=== PATIENT | female | born 1985 | race African-American/Black ===

== ENCOUNTER 2017-06-10 12:40 | Observation (INO) | payer OTHER ==
[~2017-06-10] VITALS: Ht 162.6 cm; Wt 113.9 kg
--- NOTE | 2017-06-10 13:50 | ED GI/GU/ABDOMINAL COMPLAINT ---
History of Present Illness General Chief Complaint: Abdominal Pain/Flank Pain Stated Complaint: PT STATES "IM HAVING A GALLBLADDER ATTACK" Source: patient Exam Limitations: no limitations Vital Signs & Intake/Output Vital Signs & Intake/Output Vital Signs Date Time Temp Pulse Resp B/P B/P Pulse O2 O2 Flow FiO2 Mean Ox Delivery Rate 06/11 0804 98.3 71 18 132/82 100 Room Air Allergies Coded Allergies: No Known Allergies (06/10/17) Triage Note: PT TO ED C/O "GALLBLADDER ATTACK". H/O GALLSTONES X 4 YEARS. STARTED WITH UPPER ABD PAIN, N/V/D THIS AM. Triage Nurses Notes Reviewed? yes ? N Is pt currently ? 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 RUQ abdominal pain. RUQ abdominal pain starting this morning after eating breakfast, constant with fluctuating intensity, sharp quality, worse with movement or palpation, consistent with prior pain from biliary colic. Associated nausea with 3-4 episodes of nonbloody nonbilious emesis prior to arrival, unable to tolerate PO. Some chills without fevers. Denies chest pain, shortness of breath, palpitations, diarrhea, consultation, urinary symptoms, headache, neck pain, or focal neurologic symptoms. Patient has been receiving evaluated by surgery for cholecystectomy, was unable to obtain due to poor timing for surgery. (Ann MARTIN,Jerry) Reconcile Medications Multivitamin (One-A-Day Essential) 1 EACH TABLET 1 TAB PO DAILY SUPPLIMENT ( Reported) Ondansetron (Zofran Odt) 4 MG TAB.RAPDIS 1 TAB SL TID PRN NAUSEA Oxycodone HCl/Acetaminophen (Percocet 5-325 MG Tablet) 5 MG-325 MG TABLET 1 TAB PO Q4-6 PRN postop pain (James Vilchis MD) Past History Travel History Traveled to [place] past 21 day No Medical History Any Pertinent Medical History? see below for history Neurological: psuedo tumor cerebri Gastrointestinal: gallstones Surgical History Surgical History: none Psychosocial History What is your primary language Sami Tobacco Use: Never used ETOH Use: denies use Illicit Drug Use: denies illicit drug use Family History Hx Contributory? Yes (Jerry Juarez MD) Review of Systems Review of Systems Constitutional: Reports: see HPI. EENTM: Reports: no symptoms. Respiratory: Reports: no symptoms. Cardiovascular: Reports: no symptoms. GI: Reports: see HPI. Genitourinary: Reports: no symptoms. Musculoskeletal: Reports: no symptoms. Skin: Reports: no symptoms. Neurological/Psychological: Reports: no symptoms. Hematologic/Endocrine: Reports: no symptoms. Immunologic/Allergic: Reports: no symptoms. All Other Systems: Reviewed and Negative (Jerry Juarez MD) Physical Exam Physical Exam General Appearance: well developed/nourished, no apparent distress, alert, awake Head: atraumatic Eyes: Bilateral: PERRL, EOMI. Ears, Nose, Throat, Mouth: moist mucous membrane Neck: normal inspection, full range of motion Respiratory: normal breath sounds, no respiratory distress, lungs clear Cardiovascular: regular rate/rhythm, normal peripheral pulses Gastrointestinal: normal bowel sounds, soft, tenderness Comments: General: Moderate distress, grimacing, appears uncomfortable Abdomen: Moderate right upper quadrant tenderness to palpation with positive Saxena sign Core Measures ACS in differential dx? No Sepsis Present: No Sepsis Focused Exam Completed? No (Ann MARTIN,Jerry) Progress Differential Diagnosis: AAA, AMI, appendicitis, biliary colic, bowel obstruction , colon cancer, cholecystitis, diverticulitis, ectopic , endometritis, esophageal varices, gastritis, hepatitis, hernia, hemorrhoids, ischemic bowel, inflamm bowel dis, intrauterine , kidney stone, Sandra-Phyllis tear, ovarian cyst, ovarian torsion, pancreatitis, PID/cervicitis, peptic ulcer, PUD/ GERD, perforated viscous, SBO, threatened AB, UTI/pyelo Plan of Care: Orders Procedure Date/time Status PATHOLOGY SPECIMEN 06/11 1528 Active Current Medications Sig/Chapin Start time Last Medication Dose Stop Time Status Admin Heparin Sodium 5,000 UNIT Q8 06/10 2200 AC (Porcine) Lorazepam 2 MG AT BEDTIME PRN 06/10 2030 AC (Ativan) Acetaminophen 1,000 MG Q6H PRN 06/10 1944 AC 06/11 (Ofirmev) 0802 N/A 1 UNIT (No Carrier) Hydromorphone HCl 0.6 MG Q4-6 PRN PRN 06/10 1944 AC 06/11 (Dilaudid) 0847 Hydromorphone HCl 1 MG Q4P PRN 06/10 1944 AC 06/11 (Dilaudid) 0221 Promethazine HCl 12.5 MG Q4 HRS NEEDED PRN 06/10 1944 AC (Phenergen) 06/17 1943 Pantoprazole Sodium 40 MG DAILY 06/10 1933 AC 06/11 (Protonix) 0954 Dextrose/Sodium 1,000 ML .Q6H40M 06/10 1929 AC 06/11 Chloride 0848 (D5W-1/2 Normal Saline 1000ML) Ondansetron HCl 4 MG Q8P PRN 06/10 1929 AC (Zofran) Physician MDM: 31 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 VSS, abdominal exam as above. DDx: Cholelithiasis with biliary colic, cholecystitis, pancreatitis, colitis, early appendicitits. Given zofran, 1L NS with minimal improvement in nausea, dry heaving, some improvement in pain with dailaudid. Bedside ultrasound with multiple large stones in gall bladder, some in lower GB without SIN sign. CBC with high normal WBC at 10.7, otherwise unremarkable. CMP with normal LFTs and lipase. On re-examinatin patient persistently nauseous, dry heaving, appears uncomfortable, repeat zofran dose ordered. Formal U/S with cholelithiasis without cholecystitis. On re-examination patient persistently nauseous, given reglan without relief, unable to tolerate PO. Surgery consulted for symptomatic cholelithiasis, will admit for non- emergency cholecystectomy. Initial ED EKG: none (Ann MARTIN,Jerry) Departure Departure Disposition: STILL A PATIENT Condition: Stable Clinical Impression Primary Impression: Cholelithiasis Secondary Impressions: Refractory nausea and vomiting Referrals: Lucia Lainez DO (PCP/Family) Departure Forms: Customer Survey General Discharge Information Admission Note Spoke With: Edd MARTIN,Dav Smith Documentation of Exam: Documentation of any treatments & extenuating circumstances including Concerns Regarding Discharge (functional status, medication knowledge or non-compliance, living conditions, etc.) that warrant an admission rather than observation: [ Patient presents with right upper quadrant pain and significant nausea and vomiting, found to have cholelithiasis without evidence of norma cholecystitis, vision has several gallstones that are lodged in the lower gallbladder, has a high likelihood of progression of cholecystitis, patient was able to tolerate by mouth in the ED secondary to cholelithiasis despite multiple doses of antiemetics and IV fluids, patient requires admission to the hospital for surgical consultation and laparoscopic cholecystectomy for symptomatic control, if discharged patient has a high likelihood of progression to cholecystitis, inability to tolerate by mouth could be compensated by progressive dehydration, metabolic derangements, with associated morbidity and possibly ] (Ann MARTIN,Jerry) Departure Prescriptions: Current Visit Scripts Oxycodone HCl/Acetaminophen (Percocet 5-325 MG Tablet) 1 TAB PO Q4-6 PRN postop pain #18 TAB (Deng MARTIN,James)
[2017-06-10 14:07] LABS: ABSOLUTE BASOPHIL COUNT 0 /CUMM (0.0-0.2); ABSOLUTE EOSINOPHIL COUNT 0 /CUMM (0.0-0.7); ABSOLUTE GRANULOCYTE CT 9.1 /CUMM (1.4-6.5); ABSOLUTE LYMPH COUNT 1.2 /CUMM (1.2-3.4); ABSOLUTE MONOCYTE COUNT 0.3 /CUMM (0.10-0.60); BASOPHIL % 0.3 % (0.0-2.0); EOSINOPHIL % 0.3 % (0-5); HEMATOCRIT 44.8 % (37-47); MEAN CORPUSCULAR VOLUME 81.4 FL (81.0-99.0); MEAN PLATELET VOLUME 9.8 FL (7.4-10.4); PLATELET COUNT 204 /CUMM (130-400); RBC DISTRIBUTION WIDTH 14.5 % (11.5-14.5); RED BLOOD CELL CT 5.51 /CUMM (4.20-5.40); WHITE BLOOD CELL COUNT 10.7 /CUMM (4.8-10.8)
[2017-06-10] MEDS ORDERED: ONE-A-DAY ESSE1 EACH PO (14:22)
--- NOTE | 2017-06-10 16:26 | ULTRASOUND REPORT ---
EXAMINATION: US ABDOMEN LIMITED CLINICAL INFORMATION: Right upper quadrant pain, nausea and vomiting; question cholecystitis. COMPARISON: None. TECHNIQUE: Real-time imaging of the right upper quadrant abdominal viscera. FINDINGS: PANCREAS: Normal. LIVER: There is a longitudinal span of 20.3 cm. The liver demonstrates normal size, contour and increased echogenicity. No focal lesion or intrahepatic biliary duct dilatation. GALLBLADDER: There are shadowing gallstones, without sludge, polyps, wall thickening or pericholecystic fluid. COMMON BILE DUCT: Normal in caliber measuring 0.5 cm in diameter. RIGHT KIDNEY: Normal. No hydronephrosis. No renal calculi or focal parenchymal lesions. The kidney measures 10.1 cm in maximum dimension. FREE FLUID: None. IMPRESSION: 1. There is mild hepatomegaly. 2. There is generalized increase in hepatic echotexture, consistent with fatty infiltration or hepatocellular disease. Please correlate clinically. No focal hepatic mass or intrahepatic biliary dilatation is seen. 3. There is cholelithiasis, without cholecystitis or choledocholithiasis.
--- NOTE | 2017-06-10 20:19 | History & Physical Pre-Op ---
Darek Gonsales 06/10/17 1938: General Information and HPI History of Present Illness: This is a morbidly obese 31 year-old female with a history of pseudo tumor cerebri and cholelithiasis who presents with a sudden onset of abdominal pain. Patient states she developed right upper quadrant abdominal when she woke up this morning around 8 o'clock. She states the pain is constant and fluctuates in intensity. She describes the pain as sharp in nature, worse with movement or palpation. She reports assoicated nausea, vomiting and decreased appetite. She states she last time she ate was soup and popeyes last night. She reports having similar episodes over the past couple years and was referred to a surgeon, however was unable to have surgery due lifting restrictions and having to care for her 11 month old at the time. She states she last episode she had was two years ago. In the ER, she had an ultrasound which revealed cholelithiasis, without cholecystitis or choledocholithiasis. She continues to complain of pain and nausea and had multiple episodes of bilious vomiting in the ER and was unable to tolerate a po trial. She denies any fever, chills, chest pain, shortness of breath, trouble breathing, urinary changes or bowel changes. Allergies/Medications Allergies: Coded Allergies: No Known Allergies (06/10/17) Home Med list Multivitamin (One-A-Day Essential) 1 EACH TABLET 1 TAB PO DAILY SUPPLIMENT ( Reported) Past History Medical History Neurological: psuedo tumor cerebri Gastrointestinal: gallstones Surgical History Pertinent Surgical History: , hernia repair-umbilical (1992), D&C Past Family/Social History Psychosocial History Smoking Status: Never Smoked ETOH Use: denies use Illicit Drug Use: denies illicit drug use Employment History Employment: Unemployed Review of Systems Review of Systems: Constitutional: Reports: no symptoms. EENTM: Reports: no symptoms. Respiratory: Reports: no symptoms. Cardiovascular: Reports: no symptoms. GI: Reports: see HPI. Genitourinary: Reports: no symptoms. Musculoskeletal: Reports: no symptoms. Skin: Reports: no symptoms. Neurological/Psychological: Reports: no symptoms. Hematologic/Endocrine: Reports: no symptoms. Immunologic/Allergic: Reports: no symptoms. All Other Systems: Reviewed and Negative. Exam & Diagnostic Data Last 24 Hrs of Vital Signs/I&O Vital Signs Date Time Temp Pulse Resp B/P B/P Pulse O2 O2 Flow FiO2 Mean Ox Delivery Rate 06/10 1931 99.2 73 18 159/74 100 Room Air 06/10 1451 97.7 74 18 141/64 100 Room Air 06/10 1435 96.8 64 16 123/76 95 Room Air 06/10 1343 98 Room Air 06/10 1245 96.5 73 20 140/86 96 Room Air Intake & Output 06/10 1600 06/10 0800 02 0000 Intake Total 1000 Output Total Balance 1000 Intake, IV 1000 Patient 251 lb Weight Weight Reported by Patient Measurement Method Physical Exam: General: Resting uncomfortably on the stretcher in mild distress, accompained by her mother HEENT: Normocephalic, atraumatic, scleara anicteric, moist mucus membranes Cardiac: S1S2 noted, regular rate and rhythm Lungs: Clear to ascultation bilaterally Abdomen: Soft, obese with well-healed umbilical and pfannenstiel incision, bowel sounds hypoactive, moderately tender to palpation in RUQ, no rebound or guarding noted Extremities: No edema or calf tenderness B/L Skin: Warm and non-diaphoretic Last 24 Hrs of Labs/Matt: Laboratory Tests 06/10/17 1355: Anion Gap 20 H, Estimated GFR > 60, BUN/Creatinine Ratio 12.9, Glucose 124 H, Calcium 9.8, Total Bilirubin 1.0, AST 20, ALT 32, Alkaline Phosphatase 69, Total Protein 8.0, Albumin 5.0, Globulin 3.0, Albumin/Globulin Ratio 1.7, Lipase 62, Total Beta HCG NEGATIVE, CBC w Diff NO MAN DIFF REQ, RBC 5.51 H, MCV 81.4, MCH 26.0 L, MCHC 32.0 L, RDW 14.5, MPV 9.8, Gran % 85.0 H, Lymphocytes % 11.6 L, Monocytes % 2.8, Eosinophils % 0.3, Basophils % 0.3, Absolute Granulocytes 9.1 H, Absolute Lymphocytes 1.2, Absolute Monocytes 0.3, Absolute Eosinophils 0, Absolute Basophils 0 Diagnostic Data Other Results SERVICE DATE: 06/10/17-1416 EXAM TYPE: US - US-LIMITED ABDOMEN EXAMINATION: US ABDOMEN LIMITED CLINICAL INFORMATION: Right upper quadrant pain, nausea and vomiting; question cholecystitis. COMPARISON: None. TECHNIQUE: Real-time imaging of the right upper quadrant abdominal viscera. FINDINGS: PANCREAS: Normal. LIVER: There is a longitudinal span of 20.3 cm. The liver demonstrates normal size, contour and increased echogenicity. No focal lesion or intrahepatic biliary duct dilatation. GALLBLADDER: There are shadowing gallstones, without sludge, polyps, wall thickening or pericholecystic fluid. COMMON BILE DUCT: Normal in caliber measuring 0.5 cm in diameter. RIGHT KIDNEY: Normal. No hydronephrosis. No renal calculi or focal parenchymal lesions. The kidney measures 10.1 cm in maximum dimension. FREE FLUID: None. IMPRESSION: 1. There is mild hepatomegaly. 2. There is generalized increase in hepatic echotexture, consistent with fatty infiltration or hepatocellular disease. Please correlate clinically. No focal hepatic mass or intrahepatic biliary dilatation is seen. 3. There is cholelithiasis, without cholecystitis or choledocholithiasis. Assessment/Plan Assessment/Plan: This is a morbidly obese 31 year-old female with a history of pseudo tumor cerebri and cholelithiasis who presents with biliary colic and inability to tolerate a po trial in the emergency department. Nonemergent surgical internvetion is warrented at this time to prevent recurrent episodes Place in observation Proceed to OR tomorrow for a nonemergent laparoscopic cholecystectomy with Dr. Puga Keep NPO on IV fluids IV analgesics/antiemetics as needed GI/DVT prophylaxsis on board Discussed with Dr. Puga As Ranked By This Provider Problem List: 1. Cholelithiasis Dav Puag MD 06/11/17 1037: Attending Review Statement Attending Statement Attending MD Statement: examined this patient, discuss w/resident/PA/CONSULTING HR PROFESSIONAL, reviewed images Attending Assessment/Plan: Obese patient, prior history of pseudotumor cerebri. KNown to have gallstones and intermittent epigastric pain. Now with unrelenting pain. Plan for laparoscopic cholecystectomy. Patient informed of risks including but not limited to, bleeding, infection, organ injury, conversion to open and post cholecystectomy diarrhea. She agrees.
--- NOTE | 2017-06-10 20:32 | Admission Core Measures ---
Acute Coronary Syndrome (CM) ACS Core Measures Acute Coronary Syndrome Diagnosis No Congestive Heart Failure (NEW) CHF Core Measures Congestive Heart Failure Diagnosis No Cerebrovascular Accident (NEW) CVA Core Measures CVA/TIA Diagnosis No Venous Thromboembolism VTE Core Galo (View Protocol) VTE Risk Factors Obesity No Mechanical VTE Prophylaxis d/t N/A MechProphylax Ordered No VTE Pharm Prophylaxis d/t NA PharmProphylax ordered Problem List As ranked by this Provider includes Assessment & Plan 1. Cholelithiasis HOME MEDS Home Med List Multivitamin (One-A-Day Essential) 1 EACH TABLET 1 TAB PO DAILY SUPPLIMENT ( Reported)
[2017-06-11 08:04] VITALS: BP 132/82
--- NOTE | 2017-06-11 15:54 | Operative Report ---
Operative/Inv Procedure Report Surgery Date: 06/11/17 Name of Procedure: Laparoscopic cholecystectomy Pre-Operative Diagnosis: Acute cholecystitis Post-Operative Diagnosis: Same Estimated Blood Loss: scant Surgeon/Solar Lab Technician: Edd MARTIN,Dav Smith/Stefanie MIRANDA Anesthesia: general endotracheal tube Drains: None Specimens: Gallbladder Operative Indication: 31-year-old mildly obese woman with known history of symptomatic cholelithiasis. She now presents with unrelenting epigastric abdominal pain. She presents for resection Operative/Procedure Note Note: After informed consent patient is brought to the operating room and laid supine. General anesthesia was obtained and her abdomen was prepped and draped. The skin above the umbilicus infiltrated with local anesthesia and a curvilinear incision made sharply through an inferiorly based umbilical hernia scar. We came down through the subcutaneous tissues bluntly and grasped the fascia with [place]'s. A fasciotomy was created sharply and stay sutures placed. The peritoneum was entered sharply and a blunt Mccormack port was placed. Pneumoperitoneum was achieved. There were omental adhesions to the umbilical site making visualization somewhat difficult. We were able to work around them. 3, 5 mm ports were placed in the epigastrium and right upper quadrant after local anesthesia was instilled and under direct vision the camera. She's placed in reverse Trendelenburg and rotated towards the left. The gallbladder is identified. It was distended and very elongated. It was grasped at the dome and retracted towards the head. Infundibulum was then grasped. Adhesions to the undersurface were taken down with blunt and cautery dissection. We dissected both sides the triangle Calot peritoneal tissue with cautery. The artery was medial and its normal anatomic position. It was cauterized medially to allow it to be mobilized away from the duct. [place] was cleared of areolar tissue with cautery. The arteries and duct were doubly ligated with clips. Gallbladder is removed from the fossa electrocautery. It was placed in Endo Catch bag and cinched up. Right upper quadrant was and suction irrigated normal saline. Hemostasis achieved with cautery. The ports were then removed and the gallbladder delivered and passed off the field. The fascia was closed with 0 Vicryl suture. Skin incisions closed with 4-0 Vicryl. Steri-Strips and sterile dressing applied. Sponge and needle counts are correct. CC: Lucia Lainez DO
[2017-06-11] MEDS ORDERED: PERCOCET 5-3251 EACH PO (16:13)
[2017-06-12] MEDS ORDERED: ZOFRAN ODT4 M1 SL (03:59)
== END 2017-06-13 06:59 ==
LOC: ERH 12:40 → ERHI 18:46 → CMPBEDREQ 06-12 13:10 → ERHI 06-13 06:59
PROVIDERS: Physician Assistant Medical
DX: K80.10 Calculus of gallbladder with chronic cholecystitis without obstruction (principal); R51 Headache; E66.9 Obesity, unspecified
CPT/HCPCS: 74022; 81003; 81025; 96361; 96374; 96375; 96376; 99291; J0131; J1644; J2405; J2550; J2765; J7042